=== PATIENT | female | born 2000 | race Two or more races ===

== ENCOUNTER 2024-02-11 13:05 | Emergency (ER) | payer OTHER ==
[2024-02-11 13:38] VITALS: BP 134/97; PULSE 93; RESP 20; TEMP 98.4; BMI 34.0
[2024-02-11 14:52] LABS: PH,URINE >= 9.0 (5.0-8.0); URINE APPEARANCE CLEAR; URINE BILIRUBIN NEGATIVE (NEGATIVE); URINE COLOR YELLOW; URINE GLUCOSE (UA) NEGATIVE (NEGATIVE); URINE KETONE NEGATIVE (NEGATIVE); URINE LEUK ESTERASE NEGATIVE (NEGATIVE); URINE NITRITE NEGATIVE (NEGATIVE); URINE PROTEIN NEGATIVE (NEGATIVE); URINE UROBILINOGEN 0.2 mg/dL (0.2-1.0)
[2024-02-11 14:55] LABS: HCG,QUALITATIVE URINE Negative
[2024-02-11 16:10] LABS: HIV INTERPRETATION NEGATIVE (NEGATIVE)
[2024-02-11 16:33] LABS: BASO % 0.4 % (0-2.0); EOS % 1.1 % (0-4.5); HEMATOCRIT 35.4 % (32.4-45.2); HEMOGLOBIN 11.8 GM/dL (10.7-15.3); LYMPH % 27.4 % (8-40); MCH 29.7 pg (25.7-33.7); MCHC 33.4 g/dl (32.0-36.0); MEAN CELL VOLUME 88.9 fl (80-96); MEAN PLT VOLUME 7.3 fl (7.5-11.1); MONO % 6.8 % (3.8-10.2); NEUT % 64.3 % (42.8-82.8); PLATELET COUNT 366 10^3/uL (134-434); RBC 3.99 M/mm3 (3.60-5.2); RDW 13.7 % (11.6-15.6)
[2024-02-11 17:16] LABS: POTASSIUM 4.1 mmol/L (3.5-5.1)
[2024-02-11 17:18] LABS: CALCIUM 9.2 mg/dL (8.5-10.1)
[2024-02-11 17:19] LABS: ALBUMIN 3.9 g/dl (3.4-5.0); BLOOD UREA NITROGEN 11.2 mg/dL (7-18)
[2024-02-11 17:22] LABS: CREATININE 0.8 mg/dL (0.55-1.3)
[2024-02-11 17:23] LABS: BILIRUBIN,TOTAL 0.2 mg/dL (0.2-1); TOT PROT 7.6 g/dl (6.4-8.2)
[2024-02-11] MEDS ORDERED: IBUPROFEN 400 MG TABLET (FP) PO ONE (17:57)
[2024-02-11] MEDS: IBUPROFEN 400 MG TABLET (FP) PO ONE (18:04)
== END 2024-02-11 18:09 | disposition home or self-care (01) ==
LOC: JER 13:05
DX: R10.31 Right lower quadrant pain (principal); N93.9 Abnormal uterine and vaginal bleeding, unspecified; R42 Dizziness and giddiness
CPT/HCPCS: 36415; 80053; 81003; 84703; 85025; 86803; 87077; 87086; 87389; 99283-25